=== PATIENT | male | born 1945 | race Caucasian/White ===

== ENCOUNTER 2020-02-02 17:49 | Emergency (ER) | payer OTHER, MEDICARE ==
[~2020-02-02] VITALS: Ht 175.3 cm; Wt 104.3 kg
[~2020-02-02 17:49] MED LIST: ALLO300 PO; ASPI81EC PO; ATOR20 PO; CARV25 PO; CARV6.25 PO; FINA5 PO; FISH1000 PO; HYDACE5 PO; LISI5 PO; METF500 PO; SIMV40 PO; TAMS.4ER PO; VENL150ER PO
== END 2020-02-02 18:55 | disposition home or self-care (01) ==
LOC: ER 17:49
DX: S61.411A Laceration without foreign body of right hand, initial encounter (principal); I11.0 Hypertensive heart disease with heart failure; I50.9 Heart failure, unspecified; E11.9 Type 2 diabetes mellitus without complications; F41.9 Anxiety disorder, unspecified; Z79.82 Long term (current) use of aspirin; Z79.84 Long term (current) use of oral hypoglycemic drugs; Z79.899 Other long term (current) drug therapy; F17.210 Nicotine dependence, cigarettes, uncomplicated; W29.8XXA Contact with other powered hand tools and household machinery, initial encounter
CPT/HCPCS: 12002; 99283-25

== ENCOUNTER 2020-08-27 13:15 | Emergency (ER) | payer OTHER, MEDICARE ==
[~2020-08-27] VITALS: Ht 177.8 cm; Wt 104.3 kg
--- NOTE | 2020-08-27 15:05 | NUR ---
PT FOUND TOOTHPICK IN THE BOTTOM OF WATER BOTTLE SO EGD CANCELLED. PT AWAKE AND ORIENTED. ALL BELONINGS RETURNED. Patient up to Ambulate independently. Gait steady.
[2020-12-21] MEDS ORDERED: CEPH500 PO (23:18)
== END 2020-08-27 14:24 | disposition other institution (70) ==
LOC: ER 13:15
DX: T18.9XXA Foreign body of alimentary tract, part unspecified, initial encounter (principal); I11.0 Hypertensive heart disease with heart failure; I50.9 Heart failure, unspecified; E11.9 Type 2 diabetes mellitus without complications; Z79.82 Long term (current) use of aspirin; Z79.84 Long term (current) use of oral hypoglycemic drugs; Z87.891 Personal history of nicotine dependence; Z79.899 Other long term (current) drug therapy
CPT/HCPCS: 74022; 99284-25; J2704; J7120

== ENCOUNTER 2020-11-24 18:16 | Emergency (ER) | payer OTHER, MEDICARE ==
[~2020-11-24] VITALS: Ht 172.7 cm; Wt 102.1 kg
[2020-11-24 20:07] LABS: BASOPHILS ABSOLUTE AUTO 0.04 K/mm3 (0.00-0.23); BASOPHILS PERCENT AUTO 0 % (0-2); EOSINOPHILS PERCENT AUTO 0 % (0-6); Hematocrit 42.3 % (37.0-53.0); Hemoglobin 14.5 g/dL (13.5-17.5); IMMATURE GRAN ABSOLUTE AUTO 0.05 K/mm3 (0.00-0.10); IMMATURE GRAN PERCENT AUTO 0 % (0-1); LYMPHOCYTES ABSOLUTE AUTO 2.41 K/mm3 (0.84-5.20); LYMPHOCYTES PERCENT AUTO 18 % (21-46); MONOCYTES PERCENT AUTO 5 % (4-13); Mean Corpuscular HGB 29.1 pg (26.0-34.0); Mean Corpuscular HGB Conc 34.3 g/dL (31.5-36.5); Mean Corpuscular Volume 85 fL (80-100); Mean Platelet Volume 9.2 fL (9.1-12.4); NEUTROPHILS ABSOLUTE AUTO 10.05 K/mm3 (1.96-9.15); NEUTROPHILS PERCENT AUTO 76 % (41-73); Platelet Count 291 K/mm3 (150-400); RDW Coefficient Variation 13.4 % (11.7-14.2); RDW Standard Deviation 41.2 fL (35.1-46.3); Red Blood Cell Count 4.99 M/mm3 (4.30-5.90); White Blood Cell Count 13.15 K/mm3 (4.00-11.30)
[2020-11-24 20:25] LABS: Alanine Aminotransfer (ALT/SGP 36 U/L (12-78); Albumin, Blood 3.7 g/dL (3.4-5.0); Albumin/Globulin Ratio 0.9 (0.8-1.8); Alk Phos 109 U/L (50-136); Anion Gap 8 mmol/L (6-16); Aspartate Aminotrans (AST/SGOT 25 U/L (12-37); Bilirubin, Total 0.6 mg/dL (0.1-1.0); Blood Urea Nitrogen 23 mg/dL (8-24); Bun/Creatinine Ratio 27.2 (12.0-20.0); CO2, Blood 25 mmol/L (21-32); Calcium, Blood 9.7 mg/dL (8.5-10.1); Chloride, Blood 106 mmol/L (98-108); Creatinine, Blood 0.85 mg/dL (0.60-1.20); Globulin, Blood 4.1 g/dL (2.2-4.0); Glomerular Filtration Rate >60 (60-); Glucose, Blood 172 mg/dL (70-99); Potassium, Blood 4.3 mmol/L (3.5-5.5); Sodium, Blood 139 mmol/L (136-145); Total Protein, Blood 7.8 g/dL (6.4-8.2)
[2020-11-24] MEDS ORDERED: Prinivil10 MG PO (20:46)
[2020-11-24] MEDS ORDERED: METF500 PO (20:47)
[2020-11-24] MEDS ORDERED: MULTI-VITAMIN1 EAC2 PO (20:49)
[2020-11-24] MEDS ORDERED: LACT PO (20:50)
[2020-11-24] MEDS ORDERED: IPRATROPIUM BRO30 ML (20:51)
[2020-11-24 22:08] LABS: Source, Urine Clean Catch
[2020-11-24 22:11] LABS: Appearance, Urine Cloudy (Clear); Bilirubin, Urine Neg (Neg); Blood, Urine 5+ (Neg); Color, Urine Yellow (P-Yellow); Glucose Qualitative, Urine Neg (Neg); Ketones, Urine 3+ (Neg); Leukocyte Esterase, Urine 3+ (Neg); Nitrite, Urine Neg (Neg); Protein, Urine 3+ (Neg); Specific Gravity, Urine 1.015 (1.003-1.022); Urobilinogen, Urine NORM (Normal)
[2020-11-24 22:18] LABS: White Blood Cells, Urine TNTC /hpf (0-5)
[2020-11-24 22:19] LABS: Bacteria Many /hpf; Mucus Light (0-Heavy); Squamous Epithelial Cells Not Seen /hpf (Few)
[2020-11-24] MEDS ORDERED: CEFP200 PO (23:13)
[2020-12-21] MEDS ORDERED: CEPH500 PO (23:18)
== END 2020-11-25 00:16 | disposition home or self-care (01) ==
LOC: ER 18:16
PROVIDERS: Physician Assistant
DX: N13.6 Pyonephrosis (principal); N32.9 Bladder disorder, unspecified; Z79.82 Long term (current) use of aspirin; Z79.899 Other long term (current) drug therapy
CPT/HCPCS: 36415; 74176; 80053; 81001; 83605; 85025; 87040; 87086; 96365; 96375; 99284-25; A9270; J0696; J1885; J7030

== ENCOUNTER 2023-04-13 10:04 | Day surgery (SDC) | payer OTHER ==
[~2023-04-13] VITALS: Ht 180.3 cm; Wt 96.8 kg
[~2023-04-13 10:04] MED LIST changes: +CEFP200 PO; +CEPH500 PO; +IPRATROPIUM BRO30 ML; +LACT PO; +MULTI-VITAMIN1 EAC2 PO; +Prinivil10 MG PO
[2023-04-13] MEDS ORDERED: JARDIANCE25 MG PO (10:31)
--- NOTE | 2023-04-13 10:37 | NUR ---
04/13/23 1037 Sully Dale CALL LIGHT WITHIN REACH. TETRACAINE IN RIGHT EYE AT 1035 AND PLEDGETT IN AT 1036
[2023-04-13 12:24] VITALS: BP 151/93
== END 2023-04-13 12:22 | disposition home or self-care (01) ==
LOC: ORSCSDS 10:04
PROVIDERS: Student in an Organized Health Care Education/Training Program
PROC: 08RJ3JZ Replacement of Right Lens with Synthetic Substitute, Percutaneous Approach (ICD-10-PCS; principal; 2023-04-13 11:30)
DX: E11.36 Type 2 diabetes mellitus with diabetic cataract (principal); H25.13 Age-related nuclear cataract, bilateral; G47.33 Obstructive sleep apnea (adult) (pediatric); I10 Essential (primary) hypertension; Z79.899 Other long term (current) drug therapy; Z79.82 Long term (current) use of aspirin
CPT/HCPCS: 82947; J2250; J3010; J7040; V2632

== ENCOUNTER 2023-04-27 06:06 | Day surgery (SDC) | payer OTHER ==
[~2023-04-27] VITALS: Ht 177.8 cm; Wt 98.5 kg
[~2023-04-27 06:06] MED LIST changes: +JARDIANCE25 MG PO
[2023-04-27 08:00] VITALS: BP 116/73
--- NOTE | 2023-04-27 08:10 | NUR ---
04/27/23 0810 Harmony Woodward IV REMOVED CANNULA INTACT, IV SITE WNL. PT DENIES PAIN AND NAUSEA AT THIS TIME. EXPRESSES READINESS TO DISCHARGE
== END 2023-04-27 08:12 | disposition home or self-care (01) ==
LOC: ORSCSDS 06:06
PROVIDERS: Student in an Organized Health Care Education/Training Program
PROC: 08RJ3JZ Replacement of Right Lens with Synthetic Substitute, Percutaneous Approach (ICD-10-PCS; principal; 2023-04-27 07:30)
DX: E11.36 Type 2 diabetes mellitus with diabetic cataract (principal); H25.12 Age-related nuclear cataract, left eye; Z96.1 Presence of intraocular lens; I10 Essential (primary) hypertension; G47.33 Obstructive sleep apnea (adult) (pediatric); Z79.899 Other long term (current) drug therapy; Z79.82 Long term (current) use of aspirin
CPT/HCPCS: 82947; J2001; J2250; J7040; V2632